=== PATIENT | female | born 1970 ===

== ENCOUNTER 2022-10-15 22:18 | Emergency (ER) | payer OTHER, MEDICAID, SELFPAY ==
[2022-10-15 22:22] VITALS: BP 131/61; PULSE 67; RESP 18; TEMP 37.1; O2SAT 100; BMI 26.6
[2022-10-15 22:55] VITALS: BMI 26.6
[2022-10-15 23:51] VITALS: PULSE 57; O2SAT 99
[2022-10-15 23:52] VITALS: BP 118/57; PULSE 60; O2SAT 99
[2022-10-16] VITALS (9 sets, daily range): BP systolic 94–117; BP diastolic 52–54; PULSE 60–70; RESP 18; TEMP 36.7; O2SAT 96–100
[2022-10-16 00:02] LABS: INR 1.1 (0.9-1.3); Prothrombin Time 12.3 SECONDS (10.1-12.7)
[2022-10-16 00:05] LABS: Alanine Aminotransferase 16 IU/L (<35); Albumin 4.1 g/dL (3.5-5.0); Albumin Globulin Ratio 1.3 (1.0-2.8); Alkaline Phosphatase 89 U/L (38-126); Aspartate Aminotransferase 22 IU/L (14-36); Bilirubin Total 0.3 mg/dL (0.2-1.3); Blood Urea Nitrogen 13 mg/dL (7-17); Calcium 9.2 mg/dL (8.4-10.2); Carbon Dioxide 23 mmol/L (22-32); Chloride 109 mmol/L (98-107); Estimated Glomerular Filt Rate > 60 mL/min (>60); Globulin 3.2 g/dL (1.7-4.1); Glucose 97 mg/dL (70-100); HEMOLYSIS < 15 (0-50); PTT Partial Thromboplastin Tim 32 SECONDS (26-36); Potassium 4.3 mmol/L (3.4-5.1); Sodium 138 mmol/L (137-145); Total Protein 7.3 g/dL (6.3-8.2)
[2022-10-16 00:08] LABS: Add Manual Diff / Slide Review NO; Basophils Absolute Auto 100 /uL (0-100); Basophils Percent Auto 1.6 % (0-2); Eosinophils Absolute Auto 500 /uL (0-450); Eosinophils Percent Auto 7.9 % (2-4); Hematocrit 36.8 % (36-46); Hemoglobin 12.7 g/dL (12.0-16.0); Lymphocytes Absolute Auto 2900 /uL (1100-4500); Lymphocytes Percent Auto 43.2 % (25-40); Mean Corpuscular HGB Conc 34.5 % (30-36); Mean Corpuscular Hemoglobin 31.2 PG (26-34); Mean Corpuscular Volume 90.4 fL (80-100); Monocytes Absolute Auto 400 /uL (0-900); Neutrophils Absolute Auto 2700 /uL (1500-7000); Neutrophils Percent Auto 41.3 % (50-75); Platelet Count 272 X10^3/uL (150-400); Red Blood Cell Count 4.07 X10^6/uL (4.0-5.2); Red Cell Distribution Width 12.6 % (11.6-14.8); White Blood Cell Count 6.6 X10^3/uL (4.5-11.0)
--- NOTE | 2022-10-16 01:25 | ED.HA ---
HPI - Headache General Chief Complaint: Headache Stated Complaint: Headache, Pressure near eye Time Seen by Provider: 10/15/22 23:35 Source: patient Mode of arrival: Ambulatory Limitations: no limitations History of Present Illness HPI Narrative: This is a 51-year-old female with no reported medical issues, patient states she developed a headache yesterday which has been persistent into today. She states started in the left in the back occipital area and comes over to the left side of her head. Today she felt sort of a little pop and had reading in the sclera of her right eye. Headache and bleeding of the eye on opposite sides. No temporal pain. She is had a similar episode happened 2 times before, she states it is not always been in the right eye but is also bit in the left. She states it is happened when she is had a headache. No syncope, no fevers, she states headache is quite intense. She had Tylenol at 11:00 a.m. which was helpful but then it slowly returned. Patient states no vision changes, no numbness, tingling weakness or difficulty with movement or gait. No speech changes. No vision change. She states I herself does not hurt. She states it hurt when she felt a pop and had the bleed. Patient states no chest pain or shortness of breath. No nausea or vomiting. No photophobia. No diarrhea, no constipation. No dysuria, urgency or frequency. Patient states this just started fairly recently. Related Data Allergies Allergy/AdvReac Type Severity Reaction Status Date / Time No Known Drug Allergies Allergy Verified 10/16/22 01:58 Review of Systems Review of Systems ROS Unobtainable: All systems reviewed & are unremarkable except as noted in HPI and below Patient History Social History Smoking Status: Never smoker Smoking Status: Never smoker Substance Use Type: does not use Exam Narrative Exam Narrative: GEN: well nourished, well appearing female, alert and oriented x 3, patient appears to be in mild distress. HEENT: Atraumatic, pupils are equal round reactive to light, extraocular movements are intact, nares are clear, TMs are clear with no fluid, there is no conjunctival pallor. Throat is clear without any exudates, erythema, tonsillar enlargement or uvular deviation Visual acuity: right [20/30], left [20/30] without correction. IOP: Right [default value] mm Hg, Left [default value] mm Hg General: no globe trauma Eyelids: normal inspection, eyelids everted for exam on bilaterally. Conjunctiva/Sclera: normal inspection on the left, patient has a scleral hemorrhage on the right that it does not extend over the cornea. Corneas: normal inspection, examined with fluroscein on [right/left]. EOM: intact, no palsy/entrapment Pupils: PERRL, normal accomadation, pupil normal Anterior Chambers: normal inspection, no hypema Posterior: normal fundoscopic on bilaterally HEART: Regular rate and rhythm without murmur, clicks, rubs. No carotid bruits, pulses are equal in upper and lower extremities LUNGS:Lungs clear to auscultation, no wheezes, rales, crackles, chest moves symmetrically ABD:bowel sounds normal, soft, non-tender, no guarding, rebound, rigidity, no masses noted, no hepatosplenomegaly :No CVA tenderness MSCL: Non-tender, no muscle atrophy, muscles strength 5/5 upper and lower extremities, full range of motion, normal gait NEURO:CN 2-12 intact, sensation normal, finger nose finger test normal, heel abraham test normal, no dysarthria, no aphasia. Initial Vital Signs Initial Vital Signs: Vital Signs Temperature 98.8 F 10/15/22 22:22 Pulse Rate 67 10/15/22 22:22 Respiratory Rate 18 10/15/22 22:22 Blood Pressure 131/61 10/15/22 22:22 Pulse Oximetry 100 10/15/22 22:22 Oxygen Delivery Method Room Air 10/15/22 22:22 Course Orders Ordered: ED Orders 10/15/22 23:45 CBC Auto Diff [Complete Blood Count AUTO DIFF] Stat CMP [Comprehensive Metabolic Panel] Stat PTT Partial Thromboplastin Ryan Stat Prothrombin Time INR Stat 10/16/22 01:49 CT angio head and neck Stat CT head/brain wo con Stat Discontinued Medications Acetaminophen (Acetaminophen 325 Mg Tablet) 975 mg PO NOW ONE Stop: 10/16/22 01:50 Last Admin: 10/16/22 02:01 Dose: 975 mg Documented By: ELEAZAR Vital Signs Vital signs: Vital Signs - 8 hr 10/15/22 22:22 10/15/22 23:51 10/15/22 23:52 Temperature 98.8 F Pulse Rate 67 57 L 60 Respiratory Rate 18 Blood Pressure 131/61 Pulse Oximetry 100 99 99 Oxygen Delivery Method Room Air 10/15/22 23:52 10/16/22 00:00 10/16/22 00:01 Temperature Pulse Rate 64 62 Respiratory Rate Blood Pressure 118/57 L Pulse Oximetry 98 98 Oxygen Delivery Method 10/16/22 00:01 10/16/22 00:30 10/16/22 00:30 Temperature Pulse Rate 65 Respiratory Rate Blood Pressure 94/52 L 96/52 L Pulse Oximetry 96 Oxygen Delivery Method 10/16/22 03:05 10/16/22 01:00 10/16/22 01:00 Temperature 98.1 F Pulse Rate 64 61 Respiratory Rate 18 Blood Pressure 117/54 L 94/54 L Pulse Oximetry 99 Oxygen Delivery Method Room Air 10/16/22 01:30 10/16/22 01:30 10/16/22 02:00 Temperature Pulse Rate 60 64 Respiratory Rate Blood Pressure 103/52 L Pulse Oximetry 100 100 Oxygen Delivery Method 10/16/22 03:03 10/16/22 03:04 10/16/22 03:04 Temperature Pulse Rate 70 Respiratory Rate Blood Pressure 117/54 L Pulse Oximetry 100 99 Oxygen Delivery Method MDM - Headache Lab Data 10/15/22 23:45 10/15/22 23:45 Labs: Lab Results 10/15/22 10/15/22 10/15/22 Range/Units 23:45 23:45 23:45 WBC 6.6 (4.5-11.0) X10^3/uL RBC 4.07 (4.0-5.2) X10^6/uL Hgb 12.7 (12.0-16.0) g/dL Hct 36.8 (36-46) % MCV 90.4 (80-100) fL MCH 31.2 (26-34) PG MCHC 34.5 (30-36) % RDW 12.6 (11.6-14.8) % Plt Count 272 (150-400) X10^3/uL Neut % (Auto) 41.3 L (50-75) % Lymph % (Auto) 43.2 H (25-40) % [place] % (Auto) 6.0 (3-14) % Eos % (Auto) 7.9 H (2-4) % Baso % (Auto) 1.6 (0-2) % Neut # (Auto) 2700 (5072-8603) /uL Lymph # (Auto) 2900 (4573-4884) /uL [place] # (Auto) 400 (0-900) /uL Eos # (Auto) 500 H (0-450) /uL Baso # (Auto) 100 (0-100) /uL PT 12.3 (10.1-12.7) SECONDS INR 1.1 (0.9-1.3) APTT 32 (26-36) SECONDS Sodium 138 (137-145) mmol/L Potassium 4.3 (3.4-5.1) mmol/L Chloride 109 H (98-107) mmol/L Carbon Dioxide 23 (22-32) mmol/L BUN 13 (7-17) mg/dL Creatinine 0.52 (0.52-1.04) mg/dL Estimated GFR > 60 (>60) mL/min BUN/Creatinine Ratio 25.0 H (6-22) Glucose 97 (70-100) mg/dL Calcium 9.2 (8.4-10.2) mg/dL Total Bilirubin 0.3 (0.2-1.3) mg/dL AST 22 (14-36) IU/L ALT 16 (<35) IU/L Alkaline Phosphatase 89 (38-126) U/L Total Protein 7.3 (6.3-8.2) g/dL Albumin 4.1 (3.5-5.0) g/dL Globulin 3.2 (1.7-4.1) g/dL Albumin/Globulin Ratio 1.3 (1.0-2.8) Imaging Data CT scan - head: Radiologist's Impression: No intracranial hemorrhage or mass effect, ventricles and sulci are normal size and shape. Collins-white matter discrimination is preserved. Sinuses are patent. Mastoid air cells are clear. Calvarium is intact. CTA - brain/neck: Radiologist's Impression: Aortic arch and cervical great vessels are patent, visualized intracranial arteries are patent, no aneurysm, dissection or occlusion. Visualized thyroid gland is unremarkable. No cervical mass or fluid collection. Lung apices are clear. No acute fracture. MDM Narrative Medical decision making narrative: 81-year-old female who comes in with complaint of headache which she states is stronger than what would typically happen. Patient states headaches actually on the left, she developed what looks like hemorrhage of the conjunctiva/sclera today. Headache started yesterday. She has had this happened 2 times previously with similar type episode. She is not on anticoagulants she does not take any daily medications. Denies prior surgeries. Patient did have Tylenol which was helpful for the headache but came back. No infectious changes, no other red flag symptoms. I examined general is normal normal vision and she does not have pain in the eye itself accept when the bleed started. Patient's labs including coags, platelets are overall appropriate. Head CT and CT angio were obtained, these show no acute intracranial findings and patent head and neck CT angio with no aneurysm, dissection or occlusion. Discussed with patient I would have her follow up with Ophthalmology for further evaluation this is atypical presentation. Discharge Plan Departure Patient Disposition: Home Clinical Impression: Headache, Scleral hemorrhage of right eye Instructions: DI for Headache Activity Restrictions/Additional Instructions: Please follow-up with ophthalmology for recheck, call to set up an appointment. Your imaging today did not show any acute changes. You may take Tylenol up to a 1000 mg every 6 hours as needed for headache. Please return for new or worsening symptoms, rapidly worsening headaches, fevers, passing out, chest pain, shortness of breath, sudden vision changes, eye pain, numbness, tingling weakness or other new or concerning changes. Referrals: Eagle Amador MD [Physician] - Stand Alone Forms: Patient Portal/API
--- NOTE | 2022-10-16 01:49 | DI.CT.S_ITS ---
PROCEDURE: CT ANGIO HEAD AND NECK INDICATIONS: MO w/ scleral hemorrhage. TECHNIQUE: After the administration of intravenous contrast, 1 mm thick sections acquired from the aortic arch through the [place] of Lam. 3-dimensional [id number] (MIP) and/or volume rendering reformats were acquired of the central intracranial vasculature and neck separately. For radiation dose reduction, the following was used: automated exposure control, adjustment of mA and/or kV according to patient size. COMPARISON: [facility], CT, CT HEAD/BRAIN WO [facility], 10/16/2022, 1:59. FINDINGS: Image quality: Diagnostic. BRAIN: Limited evaluation of the brain was obtained as study is protocol for CTA. HEAD CT ANGIOGRAPHY: Anterior circulation: Intracranial internal carotid arteries are normal in size and flow. The flow within the paired anterior cerebral arteries is normal and symmetric. The flow within the middle cerebral arteries is normal and symmetric. The anterior communicating artery is seen. No aneurysms are seen. Posterior circulation: Vertebral arteries are codominant. Visualized portions of the vertebral arteries demonstrate normal caliber, and join to form a normal appearing basilar artery. Flow within the posterior cerebral arteries is normal and symmetric. No aneurysms are seen. NECK CT ANGIOGRAPHY: Carotid system: The great vessels demonstrate a conventional anatomy as they arise from the aortic arch. The origins of the common carotid arteries appear patent. The common carotid arteries demonstrate normal caliber and courses. The bifurcation regions are both widely patent. The internal carotid arteries demonstrate normal calibers and courses. Posterior circulation: The origins of the vertebral arteries both appear widely patent. The more superior extracranial portions of both vertebral arteries also demonstrate normal courses and calibers. They join to form a normal appearing basilar artery. Soft tissues: Visualized neck soft tissues demonstrate no suspicious abnormalities. Bones: No suspicious bony lesions. Visualized cervical spine appears normally aligned. IMPRESSION: 1. No acute intracranial process. 2. No areas of hemodynamically significant stenosis, vascular occlusion or aneurysmal dilation within the anterior circulation. 3. No areas of hemodynamically significant stenosis, vascular occlusion or aneurysmal dilation within the posterior circulation. 4. No areas of hemodynamically significant stenosis, vascular occlusion or aneurysmal dilation within the neck vasculature. The above findings are concordant with preliminary report. Any quantitative measurements of stenosis were performed using NASCET criteria. Dictated by: Ofelia Gates M.D. on 10/16/2022 at 10:38 Approved by: Ofelia Gates M.D. on 10/16/2022 at 10:41
--- NOTE | 2022-10-16 01:49 | DI.CT.S_ITS ---
PROCEDURE: CT HEAD/BRAIN WO CON INDICATIONS: MO with hemorrhage in sclera, happened 2x before TECHNIQUE: Noncontrast 4.5 mm thick angled axial sections acquired from the foramen magnum to the vertex, with coronal and sagittal reformats. For radiation dose reduction, the following was used: automated exposure control, adjustment of mA and/or kV according to patient size. COMPARISON: [facility], CT, CT ANGIO HEAD AND NECK, 10/16/2022, 1:59. FINDINGS: Image quality: Excellent. CSF spaces: Basal cisterns are patent. No extra-axial fluid collections. Ventricles are normal in size and shape. Brain: No midline shift. No intracranial masses or hemorrhage. Collins-white matter interface is normal. Skull and face: Calvarium and visualized facial bones are intact, without suspicious lesions. Sinuses: Visualized sinuses and mastoids are clear. IMPRESSION: 1. No acute intracranial process. The above findings are concordant with preliminary report. Dictated by: Ofelia Gates M.D. on 10/16/2022 at 10:34 Approved by: Ofelia Gates M.D. on 10/16/2022 at 10:38
[2022-10-16] MEDS: ACETAMINOPHEN 325 MG TABLET 975 MG PO (02:01)
== END 2022-10-16 03:26 | disposition home or self-care (01) ==
PROVIDERS: Emergency Provider Emergency Medicine
DX: H11.31 Conjunctival hemorrhage, right eye (principal); R51.9 Headache, unspecified; Z20.822 Contact with and (suspected) exposure to COVID-19
CPT/HCPCS: 36415; 70450; 70496; 70498; 80053; 85025; 85610; 85730; 99283; 99284; Q9967